=== PATIENT | male | born 1990 | race Caucasian/White ===

== ENCOUNTER 2024-06-09 00:10 | Emergency (ER) | payer SELFPAY ==
[~2024-06-09] VITALS: Ht 180.3 cm; Wt 105.0 kg
[2024-06-09 00:38] VITALS: TEMP 36.9; O2SAT 100
[2024-06-09] MEDS: IBUPROFEN 600MG TABLET PO ONE (01:28)
[2024-06-09] MEDS ORDERED: IBUP-2029 MT (01:59)
[2024-06-09 02:22] VITALS: BP 137/94; PULSE 64; RESP 16; O2SAT 99
== END 2024-06-09 02:23 | disposition home or self-care (01) ==
LOC: ER 00:10
DX: S80.02XA Contusion of left knee, initial encounter (principal); Z98.890 Other specified postprocedural states; V49.40XA Driver injured in collision with unspecified motor vehicles in traffic accident, initial encounter; Y93.89 Activity, other specified; Y92.89 Other specified places as the place of occurrence of the external cause; Y99.8 Other external cause status
CPT/HCPCS: 71045; 99283